=== PATIENT | female | born 1935 | race Caucasian/White ===

== ENCOUNTER 2023-02-28 10:59 | Emergency (ER) | payer MEDICARE, OTHER ==
[2023-02-28] MEDS ORDERED: Iopamidol 755 Mg/ML 100 ML Bottle IVPUSH ONE (12:51)
[2023-02-28] MEDS ORDERED: Sodium Chloride 0.9% 10 ML Syringe FLUSH PRN (12:51)
[2023-02-28] MEDS ORDERED: Sodium Chloride 0.9% 100 ML IV SCH (13:00)
[2023-02-28] MEDS ORDERED: Lactated Ringers 500 ML IV ONE (13:56)
== END 2023-02-28 17:50 | disposition home or self-care (01) ==
LOC: JD.ED 10:59
DX: F80.9 Developmental disorder of speech and language, unspecified (principal); Z88.0 Allergy status to penicillin; Z91.018 Allergy to other foods; Z79.01 Long term (current) use of anticoagulants
CPT/HCPCS: 36415; 70450; 70496; 70498; 70551; 80053; 81001; 84484; 85025; 85610; 85730; 87086; 93005; 96360; 99285; J3490; J7120; Q9967